=== PATIENT | female | born 1965 | race Caucasian/White ===

== ENCOUNTER → 2017-12-06 | Outpatient (CLI) | payer OTHER | END | disposition home or self-care (01) | LOC: PCVCIMAG 14:54 | DX: I34.0 Nonrheumatic mitral (valve) insufficiency (principal); R07.89 Other chest pain; I10 Essential (primary) hypertension; Z72.0 Tobacco use | CPT/HCPCS: 93306 ==

== ENCOUNTER → 2017-12-15 | Outpatient (CLI) | payer OTHER | END | disposition home or self-care (01) | LOC: PCVCIMAG 08:23 | DX: R07.89 Other chest pain (principal); F17.210 Nicotine dependence, cigarettes, uncomplicated; I10 Essential (primary) hypertension | CPT/HCPCS: 78452; 93017; A9500 ==